=== PATIENT | male | born 1935 | race Caucasian/White ===

== ENCOUNTER 2016-12-18 08:41 | Emergency (ER) | payer MEDICARE ==
[~2016-12-18] VITALS: Ht 175.3 cm; Wt 90.9 kg
[~2016-12-18 08:41] MED LIST: ASPI81TA40 PO; ATEN25TA7 PO; FELO10TA34 PO; ISOS40TA12 PO; LISI20TA PO; OMEP20TA86 PO; POTA20TA16 PO; SMV40T PO; TRIA1CAP PO
[2016-12-18 08:50] VITALS: BP 175/77; PULSE 55; RESP 16; O2SAT 100
--- NOTE | 2016-12-18 09:02 | ED.REPORT ---
HPI-Extremity Problem Lower Date of Service Dec 18, 2016 ED Provider: Brayden Barnes MD The pt is an 81 y/o male with a hx of Type II DM, HTN, and prostate cancer (s/p surgery 22 years ago) who presents to the ED complaining of sharp right hip pain that worsens with movement, onset a few days ago. He associates his pain with sitting for an extended period of time during a train trip across [place]. He has experienced similar pain before when he gets active and goes bowling and golfing. However, the pain this time is significantly severe. He experienced mild pain while golfing yesterday. It did not concern him at the time but the pain significantly worsened today. He woke up early today and could not go back to sleep due to the severity of the pain.He took an aleve today which did not provide any relief. He denies recent trauma to the right hip, fever, chills, abdominal pain, and any other sx at this time. Nursing Notes Stated Complaint: VERY PAINFUL RT HIP Chief Complaint: Extremity Trauma Nursing Notes Reviewed: Yes Allergies: Coded Allergies: No Known Allergies (Verified , 01/22/05) Uncoded Allergies: No Known Allergies (Allergy, Unknown, 02/25/05) Scheduled Aspirin-Expunged Drug, Do Not Renew! (Aspirin-Expunged Drug, Do Not Renew!) 81 Mg Tab.chew 81 MG PO DAILY Felodipine-Expunged Drug, Do Not Renew! (Plendil-Expunged Drug, Do Not Renew!) 10 Mg Tab.sr.24h 10 MG PO AM Lisinopril-Expunged Drug, Do Not Renew! (Lisinopril-Expunged Drug, Do Not Renew! ) 20 Mg Tablet 40 MG PO AM Metoprolol Tartrate (Metoprolol Tartrate) 50 Mg Tablet 50 MG PO QPM Omeprazole-Expunged Drug, Do Not Renew! (Omeprazole-Expunged Drug, Do Not Renew! ) 20 Mg Tablet.dr 20 MG PO DAILY as needed Potassium Chl-Expunged Drug, Do Not Renew! (H-Nlp-Mxbpymfj Drug, Do Not Renew!) 20 Meq Tab.prt.sr 20 MEQ PO BID Simvastatin-Expunged Drug, Choose New Med! (Simvastatin-Expunged Drug, Choose New Med!) 40 Mg Tablet 20 MG PO HS Triamterene/HCTZ-Expunged Drug, Do Not Renew! (Triamterene/HCTZ 37.5/25-Expunged ,Do Not Renw) 1 Cap Capsule 1 CAP PO AM General Time Seen by MD: 09:07 Chief Complaint Hip injury right Hx Obtained From: Patient Arrived By: Walk-in Onset Occurred: 4 days ago Symptom Duration: Since onset Location: : Hip right Quality: Sharp Severity: Current: Mild Severity: Maximum: Severe Recent Healthcare: No recent doctor visit Similar Sx Previous: No Past Medical History Past Medical History Reports: Cancer (prostate), Diabetes mellitus, Hypertension Past Surgical History hernia repair Prostate cancer surgery Smoking History Unknown if Ever Smoker Social History Other Social History: Good social support Ambulatory Status Independent Review of Systems Constitutional: Denies: Chills, Fever Musculoskeletal: Reports: Joint pain (right hip) Complete sys rev & neg: except as marked. GI: Denies: Abdominal pain Physical Exam Initial Vital Signs Vital Signs (First) Date Time Temp Pulse Resp B/P Pulse Ox O2 Delivery O2 Flow Rate FiO2 12/18/16 08:50 36.1 55 16 175/77 100 Room Air Initial VS: Reviewed Head / Eyes: Atraumatic, Normocephalic Neck: Supple, Non-tender, Full range of motion Respiratory: No respiratory distress Cardiovascular: Intact distal pulses Abdomen / GI: Soft, Non-tender, No guarding, No rebound, No distention Upper Extremities: Vascular intact, Neuro intact, No swelling, No tenderness Skin: Warm, Dry, No cyanosis Neurologic: Alert, Oriented, Nonfocal Lower Extremity / Pelvis / MS: Atraumatic, Full range of motion, No swelling, Non-tender, No erythema, No deformity, Neurologic intact, Vascular intact No pain over the greater trochanter. Ankle / Foot: Atraumatic, Full range of motion, No swelling, No erythema, Non- tender, No deformity, Neurologic intact, Vascular intact General/Constitutional: Awake, Alert, No acute distress, Well appearing, Cooperative Interpretation & Diagnostics X-Ray Interpretation Xray Interpretation: IMPRESSION: No acute osseous abnormality of the right hip. Dictated by: Frandy Hays M.D. on 12/18/2016 at 9:38 Approved by: Frandy Hays M.D. on 12/18/2016 at 9:39 X-Ray Ordered: Hip right Interpretation / Wet Read by: Interpret - Radiologist Re-Eval/Medical Decision Source of Hx: Old records Re-Evaluation/Progress : Time of Eval: 10:38 Patient Status: Condition improved Re-Evaluation/Progress Note: Rechecked pt. Discussed imaging results, diagnosis and plan to discharge. Pt understands and agrees with the plan. F/U instruction and RTER warning given. All questions addressed. Counseled Regarding: Diagnosis, Need for follow-up, When/why to return to ED Discharge & Departure Impression: Primary Impression: Right hip pain Additional Impression: Osteoarthritis of right hip Osteoarthritis type: unspecified Qualified Code: M16.11 - Unilateral primary osteoarthritis, right hip Disposition: Home Discharge Condition All VS Reviewed: Yes Condition: Stable Patient Instructions: Osteoarthritis (ED) Additional Instructions: Thank you for entrusting us with your care today. Your X-ray is reassuring. There is no fracture. No dangerous cause of your pain was found today. I recommend stretching and warming up before you play golf. Take 2 regular or extra strength Tylenol every 6 hours for pain. You can also take 2 Ibuprofen every 8 hours or 1 aleve every 12 hours. Take them consistently. These medications can cause bleeding from the stomach, so be careful. Follow up with your primary care provider and orthopedist for further evaluation if needed. Return to the emergency department in case of worsening pain, difficulty bearing weight on the right leg, fever, chills, warmth over left hip or any new or concerning symptoms. Referrals: Low Rodriguez DO (PCP) Scribe Attestation Portions of this note were transcribed by Iban Mckeon. I,, personally performed the history,physical exam and medical decision-making;I reviewed and confirmed the accuracy of the information in the transcribed note. Signed by Trina Nieto. 12/18/16 copies to: Low Rodriguez Kirk H MD Dec 18, 2016 09:01 Iban Mckeon Dec 18, 2016 09:08
[2016-12-18] MEDS ORDERED: METO50TA3 PO (09:20)
--- NOTE | 2016-12-18 10:41 | DRSVH ---
PROCEDURE: X-RAY PELVIS W/LAT HIP (RT) ([id number]) INDICATIONS: Right hip pain TECHNIQUE: AP pelvis with lateral view(s) of the right hip(s). COMPARISON: [facility], CT, ABD/PELVIS W/CON (PNL), 12/13/2009, 16:29. FINDINGS: Bones: No fractures or dislocations. Pelvic ring appears intact. No suspicious bony lesions. Mild to moderate degenerative changes of the hips and lower lumbar spine are present. Soft tissues: Multiple clips are seen within the pelvis. The visualized bowel gas pattern is normal . No suspicious soft tissue calcifications. IMPRESSION: No acute osseous abnormality of the right hip. Dictated by: Frandy Hays M.D. on 12/18/2016 at 9:38 Approved by: Frandy Hays M.D. on 12/18/2016 at 9:39
[2016-12-18 11:25] VITALS: BP 170/72; PULSE 55; RESP 16; O2SAT 100
== END 2016-12-18 11:30 | disposition home or self-care (01) ==
LOC: SED 08:41
DX: M16.11 Unilateral primary osteoarthritis, right hip (principal); I10 Essential (primary) hypertension; E11.9 Type 2 diabetes mellitus without complications; Z85.46 Personal history of malignant neoplasm of prostate; Z72.820 Sleep deprivation; Z98.890 Other specified postprocedural states; Z79.82 Long term (current) use of aspirin